=== PATIENT | male | born 1995 | race Caucasian/White ===

== ENCOUNTER 2017-06-07 20:42 | Emergency (ER) | payer SELFPAY ==
[2017-06-07 20:42] VITALS: BP 143/78; PULSE 57; RESP 16; TEMP 36.7; O2SAT 99; BMI 24.7
--- NOTE | 2017-06-07 21:50 | RAD_ITS ---
STUDY: X-RAY - RIGHT KNEE REASON FOR EXAM: Male, 21 years old. Twisted knee today. TECHNIQUE: 4 view(s) of the knee. COMPARISON: None. FINDINGS: Normal visualized distal femur. Normal visualized proximal tibia and fibula. Normal proximal tibiofibular articulation. Normal medial femorotibial compartment. Normal lateral femorotibial compartment. Normal patellofemoral articulation. The soft tissue structures are unremarkable. RAD/Knee 4 or More Views IMPRESSION: Normal x-ray examination of the knee. Electronically Signed: Steph Fitzpatrick MD at 22:14 EST Tel , Service support ,
--- NOTE | 2017-06-07 22:22 | ED.VISSUMM ---
- ER Visit Summary Date of Service: 06/07/17 Chief Complaint: Injured right knee playing basketball History of Present Illness: The patient is a 21 M aunts because of injury to right knee while playing basketball. He threw the ball backwards. He landed awkwardly and twisted his right knee. He complains of pain and swelling. He complains of pain with movement and weightbearing. He denies prior injury to the right knee. He denies any other injury. Please read written note for complete detail Physical Examination: He appears uncomfortable. Blood pressure elevated 147/74. The right knee is slightly swollen compared to left. The patella is not ballotable nor is there a palpable effusion. He is able to extend to 180? with discomfort and flex to 90? with discomfort. Varus valgus stress testing causes pain laterally. He has pain palpation along the joint line. He has pain palpation over the lateral femoral condyle as well. Chapin's test was negative. Modified Jeane's test was positive with click laterally. He had severe pain. There is no fullness or palpable mass in the popliteal fossa. DP and PT pulses are palpable. Test Results: 4 view x-ray of the knee was obtained per nursing protocol and is negative. Emergency Department Course and Treatment: Protocol was initiated for x-ray. Treatment Plan: Anti-inflammatory and referral to Dr. Eddi Alvarez who is on for orthopedics Disposition: Out patient orthopedic follow-up in 5-7 days Impression: Meniscal injury right knee This note was generated with [employer]. dictation software. It may contain incorrect words, spelling, and punctuation that were not noted in review of the chart prior to signing ED Disposition - Plan for ED Patient: Disposition: Home or Assisted Living Chief Complaint: Lower Extremity Injury Instructions: ED Meniscal Injury Knee Poss Prescriptions: Naproxen [Naprosyn] 500 mg PO BID #14 tab Referrals: Care Physician,No Primary [Primary Care Provider] - Eddi Alvarez DO [STAFF PHYSICIAN] - 5-7 Days
--- NOTE | 2017-06-07 22:26 | ED.DCSUM_ITS ---
- ER Visit Summary Date of Service: 06/07/17 Chief Complaint: Injured right knee playing basketball History of Present Illness: The patient is a 21 M aunts because of injury to right knee while playing basketball. He threw the ball backwards. He landed awkwardly and twisted his right knee. He complains of pain and swelling. He complains of pain with movement and weightbearing. He denies prior injury to the right knee. He denies any other injury. Please read written note for complete detail Physical Examination: He appears uncomfortable. Blood pressure elevated 147/ 74. The right knee is slightly swollen compared to left. The patella is not ballotable nor is there a palpable effusion. He is able to extend to 180? with discomfort and flex to 90? with discomfort. Varus valgus stress testing causes pain laterally. He has pain palpation along the joint line. He has pain palpation over the lateral femoral condyle as well. Chapin's test was negative. Modified Jeane's test was positive with click laterally. He had severe pain. There is no fullness or palpable mass in the popliteal fossa. DP and PT pulses are palpable. Test Results: 4 view x-ray of the knee was obtained per nursing protocol and is negative. Emergency Department Course and Treatment: Protocol was initiated for x-ray. Treatment Plan: Anti-inflammatory and referral to Dr. Eddi Alvarez who is on for orthopedics Disposition: Out patient orthopedic follow-up in 5-7 days Impression: Meniscal injury right knee This note was generated with [employer] dictation software. It may contain incorrect words, spelling, and punctuation that were not noted in review of the chart prior to signing ED Disposition - Plan for ED Patient: Disposition: Home or Assisted Living Chief Complaint: Lower Extremity Injury Instructions: ED Meniscal Injury Knee Poss Prescriptions: Naproxen [Naprosyn] 500 mg PO BID #14 tab Referrals: Care Physician,No Primary [Primary Care Provider] - Eddi Alvarez DO [STAFF PHYSICIAN] - 5-7 Days
[2017-06-07] MEDS: Naproxen 250 MG Tablet 500 MG PO (22:50)
[2017-06-07] MEDS: HYDROcodone Bitartrate/Apap 5/325 Tablet PO (22:51)
== END 2017-06-07 22:54 | disposition home or self-care (01) ==
LOC: ED 22:32
PROVIDERS: Emergency Provider Emergency Medicine
DX: S83.206A Unspecified tear of unspecified meniscus, current injury, right knee, initial encounter (principal); X50.1XXA Overexertion from prolonged static or awkward postures, initial encounter; Y93.67 Activity, basketball; Y92.9 Unspecified place or not applicable
CPT/HCPCS: 73564; 99283

== ENCOUNTER → 2017-06-15 06:28 | Outpatient (CLI) | payer SELFPAY ==
--- NOTE | 2017-06-15 06:33 | MRI_ITS ---
STUDY: MRI RIGHT KNEE REASON FOR EXAM: Medial knee pain for one week, basketball injury. TECHNIQUE: Standardized fat and water weighted pulse sequences were obtained in all 3 orthogonal planes. COMPARISON: Radiographs 06/07/2017. FINDINGS: Normal medial meniscus. Normal hyaline cartilage of the medial femorotibial compartment. Normal medial femoral condyle and tibial plateau. Normal medial collateral ligamentous complex (MCL). Normal distal semimembranosus, gracilis and semitendinosus tendons. Normal lateral meniscus. Normal hyaline cartilage of the lateral femorotibial compartment. Normal lateral femoral condyle and tibial plateau. Normal proximal tibiofibular articulation. Normal lateral collateral (fibular) ligament. Normal popliteus tendon. Normal biceps femoris tendon. There is mild interstitial edema in the anterior cruciate ligament (T2 sagittal image 13; T2 coronal images 14, 15) suggestive of a low-grade sprain. Normal posterior cruciate ligament (PCL). Normal congruent patellofemoral articulation. Normal hyaline cartilage of the patellofemoral compartment. Normal medial and lateral patellar retinaculum. There is mild distal quadriceps tendinosis (T2 sagittal images 14, 15). Normal patellar tendon. Normal Hoffa's fat pad. There is no joint effusion. There is a minimal popliteal cyst (T2 axial image 14). The otherwise visualized osseous structures are unremarkable. MRI/Lower Ext Joint Only (Routine) IMPRESSION: Mild anterior cruciate ligament sprain. Mild distal quadriceps tendinosis. No demonstrated meniscal tear. Electronically Signed: Lazaro Fonseca MD at 8:42 EST Tel , Service support ,
== END ==
PROVIDERS: Visit Provider Orthopaedic Surgery
DX: S83.511A Sprain of anterior cruciate ligament of right knee, initial encounter (principal); M76.891 Other specified enthesopathies of right lower limb, excluding foot
CPT/HCPCS: 73721

== ENCOUNTER → 2021-01-21 08:55 | Outpatient (CLI) | payer BC, SELFPAY ==
[2021-01-21 10:54] LABS: ALB/GLOB Ratio 1.3 RATIO (0.9-2.4); AST(SGOT) 14 U/L (15-37); Alanine Aminotransfer ALT/SGPT 29 U/L (16-61); Albumin, Serum 4.3 g/dL (3.2-5.0); Alkaline Phosphatase 70 U/L (45-117); Anion Gap 9 (5-15); BUN 10 mg/dL (7-18); BUN/Creat Ratio 10.2 RATIO (10-20); Chloride 104 mmol/L (98-107); Creatinine, Serum 0.98 mg/dL (0.70-1.30); EST Glomerular Filtration Rate 98 mL/min (>60); Est Glom Filt Rate - Afr Amer 119 mL/min (>60); Globulin 3.3 g/dL (2.2-4.2); Glucose 77 mg/dL (74-106); Magnesium 2.2 mg/dL (1.6-2.6); Potassium 4.1 mmol/L (3.5-5.1); Protein, Total 7.6 g/dL (6.4-8.2); Sodium Level 140 mmol/L (136-145); T4 Free Direct 1.08 ng/dL (0.76-1.46); Thyroid Stim Hormone (TSH) 1.39 uIU/mL (0.358-3.74)
[2021-01-23 16:09] LABS: Endomysial Antibody IgA Negative (Negative); Immunoglobulin A 222 mg/dL (90-386); Thyroid Stim Immunoglob <0.10 IU/L (0.00-0.55)
[2021-01-23 16:53] LABS: Anti-Thyroglobulin AB < 1.0 IU/mL (0.0-0.9); Thyroglobulin, Serum Qt. 21.5 ng/mL (1.4-29.2); Thyroid Peroxidase AB < 8 IU/mL (0-34); t-Transglutaminase IgA <2 U/mL (0-3)
[2021-01-25 09:08] LABS: Beef <0.10 kU/L (Class 0); Egg, Whole <0.10 kU/L (Class 0); Milk (Cow) <0.10 kU/L (Class 0); Peanut <0.10 kU/L (Class 0); Pork <0.10 kU/L (Class 0); Soybean <0.10 kU/L (Class 0); Wheat 0.13 kU/L (Class 0/I)
[2021-01-25 10:08] LABS: Chocolate <0.10 kU/L (Class 0)
[2021-01-27 14:19] LABS: Fats, Neutral Normal (.); Fats, Total Normal (.)
== END ==
PROVIDERS: PCP Family Medicine; Referring Provider Family Medicine; Visit Provider Family Medicine
DX: R14.0 Abdominal distension (gaseous) (principal); R19.7 Diarrhea, unspecified; E07.89 Other specified disorders of thyroid; Z91.018 Allergy to other foods
CPT/HCPCS: 36415; 80053; 82705; 82784; 83516; 83735; 84432; 84439; 84443; 84445; 86003; 86005; 86255; 86376; 86800; 87177; 87209; 87506

== ENCOUNTER → 2021-01-23 16:12 | Outpatient (CLI) | payer BC, SELFPAY ==
--- NOTE | 2021-01-23 16:18 | US_ITS ---
INDICATION: THYROID PAIN/FULLNESS EXAMINATION: Ultrasound US Thyroid (eg thyroid, parathyroid, parotid) TECHNIQUE: Oquendo scale and color doppler imaging was performed of the thyroid gland. COMPARISON: None. FINDINGS: RIGHT THYROID LOBE: The right lobe of the thyroid gland is unremarkable in size and demonstrates homogeneous echogenicity with unremarkable vascularity, The right lobe of the thyroid gland measures 4.6 x 1.5 1.9 cm. There is a single nodule visualized in the lower pole of the right lobe, this nodule demonstrates mixed solid/cystic consistency measuring 0.3 x 0.4 x 0.2 cm with subtle hyperechoic foci visualized in the periphery, regular margins with perinodular vascularity is demonstrated. #1- Location: Lower pole Size: 0.3 x 0.4 x 0.2 cm Composition: 1 Echogenicity: 0 Shape: 0 Margins: 0 Echogenic Foci: 2 Total points 3, TIRADS level TR3 LEFT THYROID LOBE: The left lobe of the thyroid gland is unremarkable in size demonstrating homogenous echogenicity and unremarkable vascularity. The left lobe of the thyroid gland measures 4.7 x 1.6 x 1.4 cm. A single nodule is visualized in the midpole of the left lobe. A solid nodule is visualized in the mid pole measuring 0.7 x 0.8 x 0.7 cm demonstrating well-demarcated regular smooth margins. #2- Location: Midpole Size: 0.7 x 0.8 x 0.7 mm. Composition: 1 Echogenicity: 1 Shape: Slightly ovoid in shape Margins: 0 Echogenic Foci: 0 Total points 3, TIRADS level TR3 ISTHMUS: The isthmus demonstrates homogenous echogenicity and measures 0.4 cm in AP diameter. No evidence of nodules within the isthmus. US/Thyroid IMPRESSION: Unremarkable size and echogenicity of the thyroid gland. A 0.4 cm TR 3 nodule is visualized in the midpole of the right lobe. TR3: Mildly suspicious (3 pts) FNA biopsy if nodule at least 2.5cm; follow if at least 1.5 cm at 1, 3 and 5 years. A 0.8 cm TR 3 nodule in the lower pole of the left lobe. TR3: Mildly suspicious (3 pts) FNA biopsy if nodule at least 2.5cm; follow if at least 1.5 cm at 1, 3 and 5 years. TI-RADS follow up recommendations: TR1: Benign (0pts) No FNA biopsy. TR2: Not suspicious (2 pts) No FNA biopsy. TR3: Mildly suspicious (3 pts) FNA biopsy if nodule at least 2.5cm; follow if at least 1.5cm. TR4: Moderately suspicious (4-6 pts) FNA biopsy if nodule at least 1.5cm; follow if at least 1 cm. TR5: Highly suspicious (at least 7 pts) FNA if nodule at least 1cm; follow if at least 0.5cm. Electronically Signed: Daniel Soriano MD at 9:13 EDT Tel , Service support ,
== END ==
PROVIDERS: PCP Family Medicine; Referring Provider Family Medicine; Visit Provider Family Medicine
DX: E04.1 Nontoxic single thyroid nodule (principal)
CPT/HCPCS: 76536

== ENCOUNTER 2021-02-26 12:31 | Day surgery (SDC) | payer BC, SELFPAY ==
[2021-02-26] VITALS (7 sets, daily range): BP systolic 97–125; BP diastolic 42–75; PULSE 54–65; RESP 16–106; TEMP 36.1–36.3; O2SAT 99–100; BMI 21.5
[2021-02-26] MEDS: Lactated Ringers 1,000 ML 15 ML IV (12:57)
--- NOTE | 2021-02-26 13:57 | PCM.HP.BLA ---
History and Physical Date of Admission: 02/26/21 Chief Complaint: Diarrhea Details: RIMA SEO, is a 25 M who presents to the office today for the evaluation of constipation alternating with diarrhea, abdominal pain located mid abdomen worsening with constipation, bloating and heartburn. His stools have mucous without blood. No change to routine of food or run habits. Onset 3 weeks ago, after a run and he is unable to run as his hobby. He had to cancel a marathon run, leave work function. Biochemical workup performed and normal, stool studies normal. PCP told him that he is slightly allergic to wheat and to avoid this in his diet. He has been able to reduce wheat intake significantly for the last 10 days with no change in symptoms. Denies history of EGD and colonoscopy. ROS Const Constitutional: No anorexia, fatigue, fever(s), weight change or sleep problems Eyes Eyes: No change in vision ENT ENT: No abnormal hearing, difficulty swallowing, mouth lesions, tongue swelling or throat swelling Resp Respiratory: No cough or shortness of breath Cardio Cardiology: No chest pain at rest, chest pain with exertion, shortness of breath or dyspnea on exertion Gastro GI: Positive for abdominal pain, bloating, change in bowel habits, constipation, diarrhea and heartburn; No difficulty swallowing Genitourinary Male: No difficulty urinating or burning urination Musc Musculoskeletal: No joint pain, joint swelling, muscle weakness or decreased muscle mass Skin Skin: No hair loss in leg, yellowing of the eye, itchy eyes, rash, skin ulcer or skin swelling Neuro Neurology: No abnormal hearing, abnormal movements, confusion, unsteady gait/balance or memory loss Psych Psychiatric: No anxiety, No confusion and No memory loss Endo Endocrine: No fatigue or weight change Aller/Imm Allergy/Immunologic: No itchy eyes, throat swelling or tongue swelling Chon/Lymp Hematologic/Lymphatic: No easy bleeding, easy bruising or enlarged lymph nodes Exam Const General: cooperative and comfortable Nutritional Appearance: average body habitus and well nourished [facility] Head: normal to inspection Ears: hearing grossly normal bilaterally Nose: external nose normal Face and sinus: normal facial exam Mouth: oral mucosae normal Throat: posterior oropharynx normal Eyes General: appearance normal, both eyes and all related structures Neck Neck: normal visual inspection Chest Chest palpation & inspection: normal inspection of the chest and normal palpation of entire chest wall Resp Effort & Inspection: normal respiratory effort Auscultation: Bilateral: Clear to Auscultation Cardio Palpation: normal PMI Rate: regular rate Rhythm: regular rhythm GI Inspection: normal to inspection Auscultation: normal bowel sounds Percussion: normal to percussion Palpation: no hepatosplenomegaly Skin General: no rashes or lesions noted Neuro General: patient alert Extrem General: normal to inspection Psych Affect: normal affect Quality Reporting Tobacco Screening ([facility] 138) Smoking Status: Never smoker Assessment and Plan Assessment and Plan (1) Diarrhea: Plan - Dr. Edward Friend, DO: He went to go undergo EGD and colonoscopy evaluate his upper and lower GI tract. The diagnosis would include Crohn's disease, less likely celiac disease, microscopic colitis and less likely ulcerative colitis. Also we will do cultures of his duodenum and stool to see if there is any underlying infection and was missed during his first test of his stool.
--- NOTE | 2021-02-26 14:00 | EGD_PTH ---
PATIENT: RIMA SEO LOC: EN U#:[id number] AGE/SX: 25/M ROOM: RE02/26/[address]: Dr. Wagner Grey DO : 1995 BED: DIS: 02/26/2021 SPEC #: [id number] RECD: 02/26/21 15:37 STATUS: MILVIA TERRENCE #: [id number] LEEANNE: 02/26/21 14:[address]: Wagner Grey DEPT: SURGICAL PATHOLOGY RECD BY: Jacquelin Luna ENTERED: 02/27/21 12:30 SP TYPE: EGD BIOPSY OT DR: Dr. Romeo De Jesus MD Tissues: A - Duodenum, NOS B - Gastric mucous membrane C - Esophagus, NOS D - Ileum, NOS E - COLON BIOPSY Procedures: Special Stain Group II Surgery Specimen Level IV Alcian Blue/PAS (control) HEADER OPERATION: Colonoscopy, E[place] ([facility] [place] PRE-OP DIAGNOSIS: Diarrhea TISSUE SUBMITTED: A ? Biopsy duodenum, B ? Biopsy gastric antrum for H. pylori and path, C ? Biopsy distal esophagus, D ? Biopsy terminal ileum, E ? Biopsy random colon MICROSCOPIC DIAGNOSIS A. Duodenum, biopsy: A fragment of duodenal mucosa, no pathologic diagnosis. B. Gastric antrum, biopsy: Minimal gastritis. See microscopic description and comment. C. 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 Chronic inflammation. Negative for dysplasia. See comment. D. Terminal ileum, biopsy: Fragments of small intestinal mucosa, no pathologic diagnosis. E. Colon, random biopsy: Fragments of colonic mucosa, no pathologic diagnosis. SJ:rg 02/28/2021 COMMENT B. The results of immunohistochemistry for Helicobacter pylori will be reported separately ([id number]). C. A few lymphoid aggregates are also noted, favor benign. Alcian blue/PAS stain with matched control is used in the evaluation of the specimen. Immunohistochemistry ([id number]) for P53 and Ki-67 will be performed and results will be reported separately. MICROSCOPIC DESCRIPTION Slides are reviewed. B. The specimen shows fragments of gastric mucosa with chronic inflammatory cell infiltrates in the lamina propria consisting of lymphocytes and plasma cells, consistent with minimal chronic gastritis. GROSS DESCRIPTION A - Received in fixative is one container labeled with the patient's name and designated biopsy duodenum. The specimen consists of one irregular fragment of light batres soft tissue that measures 0.5 x 0.2 x 0.1 cm. The specimen is totally submitted in one cassette. B - Received in fixative is one container labeled with the patient's name and designated biopsy gastric antrum. The specimen consists of multiple irregular fragments of light batres soft tissue that in aggregate measure 1.5 x 0.3 x 0.1 cm. The specimen is totally submitted in one cassette. C - Received in fixative is one container labeled with the patient's name and designated biopsy distal esophagus. The specimen consists of two irregular fragments of light batres soft tissue that in aggregate measure 0.6 x 0.3 x 0.1 cm. The specimen is totally submitted in one cassette. D - Received in fixative is one container labeled with the patient's name and designated biopsy terminal ileum. The specimen consists of multiple irregular fragments of light batres soft tissue that in aggregate measure 1.5 x 0.5 x 0.1 cm. The specimen is totally submitted in one cassette. E - Received in fixative is one container labeled with the patient's name and designated biopsy random colon. The specimen consists of multiple irregular fragments of light batres soft tissue that in aggregate measure 2.5 x 0.5 x 0.1 cm. The specimen is totally submitted in one cassette. / SJ:rg 02/27/21 TC:3 [facility]: [id number] x5, [id number]
--- NOTE | 2021-02-26 14:00 | IMM_PTH ---
PATIENT: RIMA SEO LOC: EN U#:[id number] AGE/SX: 25/M ROOM: RE02/26/[address]: Dr. Wagner Grey DO : 1995 BED: DIS: 02/26/2021 SPEC #: [id number] RECD: 02/27/21 14:06 STATUS: MILVIA RESamy #: [id number] LEEANNE: 02/26/21 14:[address]: Wagner Grey DEPT: IMMUNOHISTOCHEMISTRY RECD BY: Lazara Mejía ENTERED: 02/27/21 14:06 SP TYPE: IMMUNO OTHR DR: Dr. Romeo De Jesus MD Tissues: B - Stomach, NOS C - Esophagus, NOS Procedures: H Pylori (initial) P53 (initial) KI-67 (add) PHYSICIAN & INSTITUTION [place] [id number] SPECIMEN INFORMATION: Tissue Source: B ? Gastric antrum, C ? Distal esophagus Clinical Info: Diarrhea Specimen Number: [id number] B & C CPT code: 23864 x2, 62353 METHODOLOGY: Deparaffinized sections of prefer/formalin-fixed tissue or PAP/DQ stained slides are incubated with monoclonal/polyclonal antibodies/oligonucleotide probes. Localization is made via biotin free immunoperoxidase method. Appropriate controls are performed and reacted as expected. Results on target cell population are indicated in the following table: RESULTS: ANTIBODY / CLONE RESULT Block B H Pylori (polyclonal) negative Block C P53 (DO-7) negative Ki-67 (30-9) positive, very low These tests were developed and their performance characteristics determined by [facility]. They may not have been cleared or approved by the U.S. Food and Drug Administration. The FDA has determined that such clearance or approval is not necessary. The above immunohistochemical/dualISH markers are ordered and reviewed by the pathologist. INTERPRETATION: B. Gastric antrum, biopsy: Negative for Helicobacter pylori organisms. C. Distal esophagus, biopsy: Negative for dysplasia. SJ:phani 02/28/2021
--- NOTE | 2021-02-26 14:51 | OP.CCLET_ITS ---
12/19/2021 Romeo De Jesus [address] [place] [address] Re : Upper GI endoscopy procedure for Booker Davis Dear Dr. De Jesus This procedure was performed on Friday, February 26, 2021. My impressions and recommendations are as follows: Impressions : - LA Grade A reflux esophagitis. Biopsied. - Gastritis. Biopsied. - Erythematous duodenopathy. Recommendations : - Discharge patient to home. - Resume previous diet. - Continue present medications. - Await pathology results. - Return to my office in 2 weeks. My findings are described in the full procedure note, which is enclosed. If I can be of further assistance, please feel free to contact me at . Sincerely, Wagner Grey, 02/26/2021 2:50:41 PM This report has been signed electronically.
--- NOTE | 2021-02-26 14:51 | OP.EGD_ITS ---
Patient Name: Booker Davis Procedure Date: 02/26/2021 12:12 PM Date of : 1995 Age: 25 Procedure: Upper GI endoscopy Indications: Epigastric abdominal pain Providers: Wagner Grey DO Medicines: See the Anesthesia note for documentation of the administered medications Patient Profile: This is a 25 year old male. Refer to note in patient chart for documentation of history and physical. Patient has symptoms of acute global abdominal pain and acute nausea. Complications: No immediate complications. Procedure: Pre-Anesthesia Assessment: - Prior to the procedure, a History and Physical was performed, and patient medications and allergies were reviewed. The patient is competent. The risks and benefits of the procedure and the sedation options and risks were discussed with the patient. All questions were answered and informed consent was obtained. Patient identification and proposed procedure were verified by the physician in the pre-procedure area. Mental Status Examination: alert and oriented. Airway Examination: normal oropharyngeal airway and neck mobility. Respiratory Examination: clear to auscultation. CV Examination: normal. Prophylactic Antibiotics: The patient does not require prophylactic antibiotics. Prior Anticoagulants: The patient has taken no previous anticoagulant or antiplatelet agents. After reviewing the risks and benefits, the patient was deemed in satisfactory condition to undergo the procedure. The anesthesia plan was to use moderate sedation / analgesia (conscious sedation). Immediately prior to administration of medications, the patient was re-assessed for adequacy to receive sedatives. The heart rate, respiratory rate, oxygen saturations, blood pressure, adequacy of pulmonary ventilation, and response to care were monitored throughout the procedure. The physical status of the patient was re-assessed after the procedure. After obtaining informed consent, the endoscope was passed under direct vision. Throughout the procedure, the patient's blood pressure, pulse, and oxygen saturations were monitored continuously. The Endoscope was introduced through the mouth, and advanced to the second part of duodenum. The upper GI endoscopy was accomplished without difficulty. The patient tolerated the procedure well. Moderate Sedation: Moderate (conscious) sedation was administered by the endoscopy nurse and supervised by the endoscopist. The patient's oxygen saturation, heart rate, blood pressure and response to care were monitored. Total physician intraservice time was 15 minutes. Scope In: 2:12:15 PM Scope Out: 2:17:59 PM Total Procedure Duration Time 0 hours 5 minutes 44 seconds Findings: LA Grade A (one or more mucosal breaks less than 5 mm, not extending between tops of 2 mucosal folds) esophagitis with no bleeding was found 34 to 35 cm from the incisors. Biopsies were taken with a cold forceps for histology. Verification of patient identification for the specimen was done. Estimated blood loss was minimal. Localized mild inflammation characterized by erythema was found in the stomach. Biopsies were taken with a cold forceps for histology. Verification of patient identification for the specimen was done. Estimated blood loss was minimal. Patchy mildly erythematous mucosa without active bleeding and with no stigmata of bleeding was found in the first portion of the duodenum. Impression: - LA Grade A reflux esophagitis. Biopsied. - Gastritis. Biopsied. - Erythematous duodenopathy. Recommendation: - Discharge patient to home. - Resume previous diet. - Continue present medications. - Await pathology results. - Return to my office in 2 weeks. Procedure Code(s): --- Professional --- 80170, Esophagogastroduodenoscopy, flexible, transoral; with biopsy, single or multiple G0500, Moderate sedation services provided by the same physician or other qualified health skin care instructor performing a gastrointestinal endoscopic service that sedation supports, requiring the presence of an independent trained observer to assist in the monitoring of the patient's level of consciousness and physiological status; initial 15 minutes of intra-service time; patient age 5 years or older (additional time may be reported with 31290, as appropriate) CPT copyright 2017 [employer]. All rights reserved. The codes documented in this report are preliminary and upon orthopedic coder review may be revised to meet current compliance requirements. Wagner Grey DO 02/26/2021 2:50:41 PM This report has been signed electronically. Number of Addenda: 1 Note Initiated On: 02/26/2021 12:12 PM Addendum Number: 1 Addendum Date: 12/19/2021 6:20:53 AM MAC was used instead of moderate sedation for this patient. Wagner Grey DO 12/19/2021 6:21:00 AM This report has been signed electronically.
--- NOTE | 2021-02-26 14:56 | OP.COLON_ITS ---
Patient Name: Booker Davis Procedure Date: 02/26/2021 2:19 PM Date of : 1995 Age: 25 Procedure: Colonoscopy Indications: Clinically significant diarrhea of unexplained origin Providers: Wagner Grey DO Medicines: See the Anesthesia note for documentation of the administered medications Patient Profile: This is a 25 year old male. Refer to note in patient chart for documentation of history and physical. Patient has symptoms of acute global abdominal pain and acute nausea. Last Colonoscopy: none. The patient's first colonoscopy is today. Complications: No immediate complications. Procedure: Pre-Anesthesia Assessment: - Prior to the procedure, a History and Physical was performed, and patient medications and allergies were reviewed. The patient is competent. The risks and benefits of the procedure and the sedation options and risks were discussed with the patient. All questions were answered and informed consent was obtained. Patient identification and proposed procedure were verified by the physician in the pre-procedure area. Mental Status Examination: alert and oriented. Airway Examination: normal oropharyngeal airway and neck mobility. Respiratory Examination: clear to auscultation. CV Examination: normal. Prophylactic Antibiotics: The patient does not require prophylactic antibiotics. Prior Anticoagulants: The patient has taken no previous anticoagulant or antiplatelet agents. After reviewing the risks and benefits, the patient was deemed in satisfactory condition to undergo the procedure. The anesthesia plan was to use moderate sedation / analgesia (conscious sedation). Immediately prior to administration of medications, the patient was re-assessed for adequacy to receive sedatives. The heart rate, respiratory rate, oxygen saturations, blood pressure, adequacy of pulmonary ventilation, and response to care were monitored throughout the procedure. The physical status of the patient was re-assessed after the procedure. After I obtained informed consent, the scope was passed under direct vision. Throughout the procedure, the patient's blood pressure, pulse, and oxygen saturations were monitored continuously. The pediatric colonoscope was introduced through the anus and advanced to the terminal ileum. The colonoscopy was performed without difficulty. The patient tolerated the procedure well. The quality of the bowel preparation was good. Moderate Sedation: Moderate (conscious) sedation was administered by the endoscopy nurse and supervised by the endoscopist. The patient's oxygen saturation, heart rate, blood pressure and response to care were monitored. Total physician intraservice time was 15 minutes. Scope In: 2:24:38 PM Scope Withdrawal Time 0 hours 7 minutes 41 seconds Scope Out: 2:42:57 PM Total Procedure Duration Time 0 hours 18 minutes 19 seconds Findings: The perianal and digital rectal examinations were normal. There was moderate spasm in the sigmoid colon. The rectum appeared normal. Biopsies for histology were taken with a cold forceps from the ascending colon, right colon, left colon, transverse colon, right transverse colon, left transverse colon, descending colon, sigmoid colon, rectum and rectosigmoid colon for evaluation of microscopic colitis. Biopsies were taken with a cold forceps for histology. The terminal ileum appeared normal. Biopsies were taken with a cold forceps for histology. Estimated blood loss was minimal. Impression: - Moderate colonic spasm consistent with irritable bowel syndrome. - The rectum is normal. Biopsied. - The examined portion of the ileum was normal. Biopsied. Recommendation: - Discharge patient to home. - Resume previous diet. - Continue present medications. - Await pathology results. - Return to my office in 2 weeks. - Repeat colonoscopy in 5 years for surveillance based on pathology results. Procedure Code(s): --- Professional --- 64765, Colonoscopy, flexible; with biopsy, single or multiple G0500, Moderate sedation services provided by the same physician or other qualified health complex care nurse performing a gastrointestinal endoscopic service that sedation supports, requiring the presence of an independent trained observer to assist in the monitoring of the patient's level of consciousness and physiological status; initial 15 minutes of intra-service time; patient age 5 years or older (additional time may be reported with 17930, as appropriate) CPT copyright 2017 [employer]. All rights reserved. The codes documented in this report are preliminary and upon hydraulic rubbish compactor mechanic review may be revised to meet current compliance requirements. Wagner rGey DO 02/26/2021 2:56:12 PM This report has been signed electronically. Number of Addenda: 1 Note Initiated On: 02/26/2021 2:19 PM Addendum Number: 1 Addendum Date: 12/19/2021 6:21:11 AM MAC was used instead of moderate sedation for this patient. Wagner Grey DO 12/19/2021 6:21:16 AM This report has been signed electronically.
--- NOTE | 2021-02-26 14:57 | OP.CCLET_ITS ---
12/19/2021 Romeo De Jesus [address] [place] [address] Re : Colonoscopy procedure for Booker Davis Dear Dr. De Jesus This procedure was performed on Friday, February 26, 2021. My impressions and recommendations are as follows: Impressions : - Moderate colonic spasm consistent with irritable bowel syndrome. - The rectum is normal. Biopsied. - The examined portion of the ileum was normal. Biopsied. Recommendations : - Discharge patient to home. - Resume previous diet. - Continue present medications. - Await pathology results. - Return to my office in 2 weeks. - Repeat colonoscopy in 5 years for surveillance based on pathology results. My findings are described in the full procedure note, which is enclosed. If I can be of further assistance, please feel free to contact me at . Sincerely, Wagner Grey, 02/26/2021 2:56:12 PM This report has been signed electronically.
== END 2021-02-26 15:40 | disposition home or self-care (01) ==
LOC: EN 12:34 → AC 12:35
PROVIDERS: PCP Family Medicine; Referring Provider Family Medicine; Visit Provider Internal Medicine Gastroenterology
PROC: 0DJD8ZZ Inspection of Lower Intestinal Tract, Via Natural or Artificial Opening Endoscopic (ICD-10-PCS; CPT 45378; principal; 2021-02-26 13:55)
DX: K22.70 Barrett's esophagus without dysplasia (principal); K21.00 Gastro-esophageal reflux disease with esophagitis, without bleeding; K29.70 Gastritis, unspecified, without bleeding; K31.89 Other diseases of stomach and duodenum; K58.2 Mixed irritable bowel syndrome
CPT/HCPCS: 43239; 45380; 88305; 88313; 88341; 88342; J7120; J2405

== ENCOUNTER → 2021-03-11 09:54 | Outpatient (CLI) | payer BC, SELFPAY ==
[2021-03-13 11:50] LABS: Gastrin, Serum 12 pg/mL (0-115)
== END ==
PROVIDERS: PCP Family Medicine; Referring Provider Internal Medicine Gastroenterology; Visit Provider Internal Medicine Gastroenterology
DX: K52.9 Noninfective gastroenteritis and colitis, unspecified (principal)
CPT/HCPCS: 36415; 82941

== ENCOUNTER → 2021-04-08 17:39 | Outpatient (CLI) | payer BC, SELFPAY ==
--- NOTE | 2021-04-08 17:42 | CT_ITS ---
STUDY: CT ABDOMEN AND PELVIS WITH CONTRAST REASON FOR EXAM: Male, 25 years old. Winkler''s esophagus on upper endoscopy. Abdominal pain. RADIATION DOSAGE (If Supplied By Facility): CTDIvol = ( 10.15 ) mGy, DLP = ( 499.09 ) mGycm TECHNIQUE: Transaxial images were obtained from the dome of the diaphragm to the symphysis pubis with oral contrast. Oral and amp; IV Readi-CAT and amp; 100mL Isovue-300 was administered. Sagittal and coronal images were reconstructed. Individualized dose optimization techniques were used for this CT. COMPARISON: Comparison is made with prior examination of 06/04/2013. FINDINGS: The visualized lung bases are unremarkable. The visualized portions of the heart are within normal limits. Normal liver. Normal gallbladder and extrahepatic biliary system. Normal spleen. Normal pancreas. Normal bilateral adrenal glands. Normal right kidney. Normal left kidney. Normal visualized stomach. Normal small intestine. There are scattered colonic diverticula consistent with diverticulosis. The appendix is visualized and appears normal. Normal abdominal aorta. Normal inferior vena cava. Normal retroperitoneum. Normal urinary bladder. Normal abdominal wall. Straightening of the normal lumbar lordosis. CT/Abdomen/Pelvis WITH Contrast IMPRESSION: Normal enhanced CT of the abdomen and pelvis. Electronically Signed: Homer Bartlett MD at 8:29 EST , Service support ,
== END ==
PROVIDERS: PCP Family Medicine; Visit Provider Internal Medicine Gastroenterology
DX: R10.9 Unspecified abdominal pain (principal)
CPT/HCPCS: 74177; Q9967

== ENCOUNTER → 2021-04-10 14:05 | Outpatient (CLI) | payer BC, SELFPAY ==
[2021-04-10 15:36] LABS: Vitamin B12 312 pg/mL (211-911)
[2021-04-10 16:11] LABS: CPK Total, Creatine Kinase 102 U/L (39-308); Free T3 2.8 pg/mL (2.18-3.98); T4 Free Direct 1.12 ng/dL (0.76-1.46); Thyroid Stim Hormone (TSH) 2.37 uIU/mL (0.358-3.74)
[2021-04-14 11:07] LABS: Anti-Centromere B Ab <0.2 AI (0.0-0.9); Anti-Chromatin <0.2 AI (0.0-0.9); Anti-Jo <0.2 AI (0.0-0.9); Anti-Scleroderma-70 AB <0.2 AI (0.0-0.9); RNP Ab 0.2 AI (0.0-0.9); SJOGREN'S Anti-SS-A test < 0.2 AI (0.0-0.9); SJOGREN'S Anti-SS-B test < 0.2 AI (0.0-0.9); Smith Ab <0.2 AI (0.0-0.9)
[2021-04-14 14:54] LABS: Anti-dsDNA Ab <1 IU/mL (0-9)
== END ==
PROVIDERS: Nurse Practitioner Adult Health; PCP Family Medicine; Visit Provider Internal Medicine Gastroenterology
DX: K22.70 Barrett's esophagus without dysplasia (principal); R10.9 Unspecified abdominal pain; R63.4 Abnormal weight loss
CPT/HCPCS: 82550; 82607; 82746; 83516; 84439; 84443; 84481; 86225; 86226; 86235

== ENCOUNTER 2021-06-10 08:05 | Outpatient (CLI) | payer BC, SELFPAY ==
--- NOTE | 2021-06-10 08:08 | RAD_ITS ---
PROCEDURE: SMALL BOWEL SERIES DATE OF EXAMINATION: 06/10/2021. INDICATION: Male, 25 years old. Abdominal pain. Constipation/diarrhea. PHYSICIAN: Homer Bartlett M.D. FLUOROSCOPY TIME (if supplied): (0:07) minutes/seconds. 8 images were obtained. TECHNIQUE: Radiographic and fluoroscopic images were taken of the small intestine following the ingestion of barium. COMPARISON: None. FINDINGS: A preliminary supine KUB was obtained. There is an unremarkable bowel gas pattern. Large amount of fecal material is seen in the colon. The lung bases are unremarkable. The osseous structures are normal. The patient orally ingested approximately 12 ounces of thin barium Normal visualized fundus, body, and antrum of the stomach. Normal duodenal bulb, C-loop, and proximal jejunum. Normal visualized mucosal folds of the jejunum and ileum. There are no demonstrated dilatations, strictures, or masses of the small intestine. There is no mass displacement of the loops of small intestine. There is a normal motor pattern with barium reaching the colon within approximately 60 minutes. Spot films under fluoroscopic observation demonstrated a normal terminal ileum and ileocecal valve. RAD/Small Bowel Series Only IMPRESSION: Normal small bowel series. Electronically Signed: Homer Bartlett MD at 12:01 EST ,
== END 2021-06-10 23:59 | disposition home or self-care (01) ==
LOC: RAD 08:05
PROVIDERS: PCP Family Medicine; Referring Provider Internal Medicine Gastroenterology; Visit Provider Internal Medicine Gastroenterology
DX: R19.7 Diarrhea, unspecified (principal); R10.9 Unspecified abdominal pain
CPT/HCPCS: 74250

== ENCOUNTER 2021-10-18 19:24 | Emergency (ER) | payer BC, SELFPAY ==
[2021-10-18 19:24] VITALS: BP 139/69; PULSE 63; RESP 15; TEMP 36.8; O2SAT 100; BMI 22.6
--- NOTE | 2021-10-18 20:27 | CT_ITS ---
STUDY: CTA HEAD AND NECK WITH CONTRAST REASON FOR EXAM: Male, 26 years old. vertigo RADIATION DOSAGE (If Supplied By Facility): CTDIvol = ( 31.76 ) mGy, DLP = ( 1606.65 ) mGycm TECHNIQUE: CT angiography was performed with a multi-detector CT scanner. Data acquisition was obtained from the skull base through the vertex following intravenous administration of IV 100mL Isovue-370. MIP images were reconstructed from the axial data set. Post-processing of the angiographic images was performed, with multiplanar reformation and 3D reconstruction. Individualized dose optimization techniques were used for this CT. COMPARISON: No relevant priors. FINDINGS: Normal bilateral petrous and cavernous carotid arteries. Normal anterior cerebral arteries. Normal intact anterior communicating artery (ACOM). Normal middle cerebral arteries Normal right posterior communicating artery (PCOM). Normal left posterior communicating artery (PCOM). Normal bilateral vertebral arteries. Normal basilar artery with a normal basilar bifurcation. The visualized bilateral superior cerebellar (SCA) arteries are normal. origin of the right posterior cerebral artery with robust posterior communicating artery and absent P1 segment of the right [employer]. Normal left P1 segment. Normal bilateral P2 and visualized P3 segments of the posterior cerebral arteries. There is no demonstrated aneurysm of the [place]. There is no demonstrated abnormality of the visualized brain. AORTIC ARCH: Normal visualized aortic arch. Normal origins of the brachiocephalic, left common carotid, and left subclavian arteries. RIGHT CAROTID ARTERIES: Normal right common carotid artery (CCA). Normal right common carotid bulb. Normal origin of the right internal carotid (ICA) artery without stenosis. Normal visualized cervical portion of the right internal carotid artery. Normal origin of the right external carotid artery (ECA). LEFT CAROTID ARTERIES: Normal left common carotid artery (CCA). Normal left common carotid bulb. Normal origin of the left internal carotid (ICA) artery without stenosis. Normal visualized cervical portion of the left internal carotid artery. Normal origin of the left external carotid artery (ECA). VERTEBRAL ARTERIES: Normal bilateral vertebral arteries. 0.8 cm left thyroid nodule. CT/CTA Head AND Neck W/ Contrast IMPRESSION: Normal CTA Head and neck with contrast. Subcentimeter thyroid nodule. No follow-up is necessary per ACR guidelines. Electronically Signed: Alyssa Lanza MD at 22:38 EDT Reading Location ID and State: [id number] / Tel , Service support ,
[2021-10-18] MEDS: Meclizine HCl 25 MG Tablet PO (20:41)
[2021-10-18] MEDS: 0.9% Normal Saline 1,000 ML 1000 ML IV (20:41)
[2021-10-18] MEDS: Ondansetron 4 MG/2 ML Vial IV (20:41)
[2021-10-18 20:48] LABS: Absolute Lymphocyte Count 1.79 X10^3/uL (0.83-4.51); Absolute Neutrophil Count 2.8 X10^3/uL (2.0-7.7); Basophil# 0.04 X10^3/uL; Basophil% 0.8 % (0-1); Eosinophil# 0.14 X10^3/uL; Eosinophils% 2.7 % (0-5); Hematocrit 41.6 % (40-54); Hemoglobin 14.4 g/dL (13.0-16.5); Lymphocyte # 1.79 X10^3/ul (0.83-4.51); Lymphocyte % 34.2 % (19-41); Mean Corp Hgb Conc 34.6 g/dL (32-36); Mean Corpuscular Hgb 29.4 pg (27.0-32.0); Mean Corpuscular Volume 84.9 fL (80-94); Mean Platelet Vol. 11.4 fl (6.2-12.0); Monocyte# 0.46 X10^3/uL; Monocyte% 8.8 % (0-10); NRBC Flagged by Analyzer 0 % (0-5); Neutrophil % 53.3 % (47-70); Platelet Count 214 K/mm3 (150-450); RBC Distribution Width CV 11.9 % (11.6-14.6); RBC Distribution Width SD 36.4 fl (35.1-43.9); White Blood Count 5.2 K/mm3 (4.4-11.0)
[2021-10-18 21:04] LABS: Anion Gap 4 (5-15); BUN 9 mg/dL (7-18); BUN/Creat Ratio 9.6 RATIO (10-20); Chloride 107 mmol/L (98-107); Creatinine, Serum 0.94 mg/dL (0.70-1.30); EST Glomerular Filtration Rate 103 mL/min (>60); Est Glom Filt Rate - Afr Amer 124 mL/min (>60); Estimated Creatinine Clearance 122.69 ml/min; Glucose 118 mg/dL (74-106); Potassium 3.8 mmol/L (3.5-5.1); Sodium Level 141 mmol/L (136-145)
--- NOTE | 2021-10-18 22:28 | EX.ED.DYSGE1 ---
HPI History of Present Illness Chief Complaint: Dizziness Informant: patient Onset/Context/Timing Onset: Today Current Severity: Mild Maximum Severity: Moderate Narrative Narrative: Patient presents secondary to vertigo. He states he felt well this morning. He went to the gym to workout. He states after doing some squats he was walking across to the bench when he started to feel little lightheaded as if he might pass out. He laid down to do a few bench presses. He states he was using a light weight for a warm up. He became dizzy and felt as if he was going to pass out so he stopped. Throughout the day today he has felt off balance as if things are spinning when he moves his head. No significant headache. [facility] Medical History Winkler esophagus IBS (irritable bowel syndrome) Non-smoker prior herniated disc,back surgery. Medical History no medical history Home Medications amitriptyline 10 mg tablet 10 tab PO QHS 10/18/21 [History Last Taken Unknown] meclizine 50 mg tablet (Antivert) 50 mg PO BID PRN dizziness #20 tabs 10/18/21 [Rx Last Taken Unknown] ondansetron 4 mg disintegrating tablet 4 mg PO Q8H PRN nausea and vomiting #10 tabs 10/18/21 [Rx Last Taken Unknown] Allergy/AdvReac Type Severity Reaction Status Date / Time strawberry [Willet] Allergy Hives Verified 10/18/21 19:27 Family History Other History of kidney cancer Surgical History h/o back surgery Hx of surgical procedure Social History Smoking Status: Never smoker ROS ROS ED Constitutional Constitutional ED: Denies chills or fever(s) Eyes Eyes: Denies change in vision or discharge from eye(s) ENT ENT ED: Denies discharge from eye(s), rhinorrhea or sore throat Cardiovascular Cardiovascular: Denies chest pain or palpitations Respiratory/Chest Respiratory/Chest: Denies cough or dyspnea Gastrointestinal Gastrointestinal: Reports nausea and vomiting; Denies abdominal pain or diarrhea Genitourinary Genitourinary ED: Denies difficulty urinating or dysuria Musculoskeletal Musculoskeletal: Denies back pain or extremity pain Integumentary Denies Abrasions or rash Neurologic Neurologic: Denies headache(s) or weakness Allergic/Immunologic Allergic/Immunologic ED: Denies lip swelling or urticaria EXAM Physical Exam Const Vital Signs: 10/18/21 19:24 10/18/21 19:32 Temperature 98.2 F Temperature Source Temporal Pulse Rate 63 Respiratory Rate 15 Respiratory Effort Normal Non-Labored Respiratory Pattern Normal Blood Pressure 139/69 H Blood Pressure Mean 92 Pulse Ox 100 Oxygen Delivery Method Room Air Positive well nourished and well developed General Appearance ED: well developed HEENT Reports normocephalic and head/scalp atraumatic Eyes PERRL and EOMs intact bilaterally Neck supple Chest Wall inspection of chest normal and palpation of chest normal Resp normal respiratory effort and clear to auscultation bilaterally Cardio regular rate and regular rhythm GI normal to inspection, nondistended, normoactive bowel sounds Palpation: soft Extremity normal to inspection Neuro oriented x3 and no sensory deficits noted Sensorium / Orientation: alert Motor Exam: strength 5/5 throughout Psych mental status grossly normal Skin no rashes or lesions noted MDM MDM MDM Narrative Medical decision making narrative: Patient is given Zofran and Antivert along with IV fluids. Lab work obtained along with a CTA of the head and neck. Lab Data Attestation: I reviewed the patient's lab results. Labs: Laboratory Results - last 24 hr 10/18/21 10/18/21 20:40 20:40 WBC 5.2 RBC 4.90 Hgb 14.4 Hct 41.6 MCV 84.9 MCH 29.4 MCHC 34.6 RDW Std Deviation 36.4 RDW Coeff of Alesha 11.9 Plt Count 214 MPV 11.4 Immature Gran % (Auto) 0.200 Neut % (Auto) 53.3 Lymph % (Auto) 34.2 [place] % (Auto) 8.8 Eos % (Auto) 2.7 Baso % (Auto) 0.8 Absolute Neuts (auto) 2.8 Absolute Lymphs (auto) 1.79 Nucleated RBC % 0 Sodium 141 Potassium 3.8 Chloride 107 Carbon Dioxide 30.0 Anion Gap 4 L BUN 9 Creatinine 0.94 Estim Creat Clear Calc 122.69 Est GFR (MDRD) Af Amer 124 Est GFR (MDRD) Non-Af 103 BUN/Creatinine Ratio 9.6 L Glucose 118 H Calcium 9.0 Radiography Diagnostic Testing: Clinical Impression(s) from Imaging Studies Head/Neck CTA 10/18/21 20:27 IMPRESSION: Normal CTA Head and neck with contrast. Subcentimeter thyroid nodule. No follow-up is necessary per ACR guidelines. Electronically Signed: Alyssa Lanza MD at 22:38 EDT Reading Location ID and State: [id number] / Tel , Service support , Treatment and Re-Evaluation Narrative: Lab work is unremarkable. CTA of the head and neck is normal. On repeat evaluation patient does report some improvement when he sitting upright. He states shortly before I entered the room he turned his head to the side but still felt very vertiginous with this. He will be given prescription for Zofran and Antivert. He will also be given instructions on Genevieve maneuvers. Discharge Plan Triage Chief Complaint: Dizziness ED Provider: Alma Delia Barrett Dx/Rx/DC Orders Clinical Impression: Vertigo Instructions: ED Vertigo, Unspecified Prescriptions: New ondansetron 4 mg tablet,disintegrating 4 mg PO Q8H PRN (Reason: nausea and vomiting) Qty: 10 0RF Antivert 50 mg tablet 50 mg PO BID PRN (Reason: dizziness) Qty: 20 0RF No Action amitriptyline 10 mg tablet 10 tab PO QHS Label Comments: take 1 tablet by mouth at bedtime Primary Care Provider: Romeo De Jesus Referrals: Romeo De Jesus MD [Primary Care Provider] - 1 Week if not improving Disposition Disposition: Home, Self Care
[2021-10-18 22:54] VITALS: BP 114/72; PULSE 60; RESP 13
== END 2021-10-18 22:56 | disposition home or self-care (01) ==
PROVIDERS: Emergency Provider Emergency Medicine; PCP Family Medicine; Visit Provider Emergency Medicine
DX: R42 Dizziness and giddiness (principal)
CPT/HCPCS: 70496; 70498; 80048; 85025; 96361; 96374; 99285; J7030; Q9967; A4216; J2405

== ENCOUNTER → 2021-11-17 | Outpatient (CLI) | payer BC, SELFPAY ==
[2021-11-17 18:29] LABS: CRP < 2.90 mg/L (0.0-3.0)
[2021-11-19 15:08] LABS: Endomysial Antibody IgA Negative (Negative)
[2021-11-19 16:23] LABS: Immunoglobulin A 207 mg/dL (90-386); t-Transglutaminase IgA <2 U/mL (0-3)
== END | disposition home or self-care (01) ==
LOC: MTLAB 15:10
PROVIDERS: PCP Family Medicine; Referring Provider Internal Medicine Gastroenterology; Visit Provider Internal Medicine Gastroenterology
DX: R10.9 Unspecified abdominal pain (principal); R19.7 Diarrhea, unspecified
CPT/HCPCS: 36415; 82784; 83516; 86140; 86255

== ENCOUNTER → 2023-05-13 | Outpatient (CLI) | payer BC, SELFPAY ==
--- NOTE | 2023-05-13 08:25 | US_ITS ---
STUDY: SUPERFICIAL ULTRASOUND - LEFT LOWER QUADRANT/LEFT GROIN REASON FOR EXAM: Male, 27 years old. Left lower quadrant pain. TECHNIQUE: A superficial ultrasound was performed with real-time and static henriquez-scale imaging. COMPARISON: None. FINDINGS: The left lower quadrant/left groin was examined with ultrasound. There are 3 adjacent well-circumscribed benign-appearing lymph nodes. The largest measures 1.7 cm x 1.3 cm x 0.6 cm. US/Abdomen Limited IMPRESSION: Benign-appearing lymph nodes as described are seen in the left inguinal region. Electronically Signed: Homer Bartlett MD at 10:36 EST ,
--- OUTSIDE RECORDS SUMMARY | 2023-05-13 08:45 | XMS RPT_ITS | CCD ---
Author Name Unknown Address [address] [place] [address] Organization [facility] Care Team Providers Care Accounts Payable Assistant Name Role Phone LOWELL MALIK Unavailable Unavailable PHYSICIAN, NONE Unavailable Unavailable Results Test Name Value Interpretation Reference Range Facil ity Encounters Encounter Date Encounter Type Care Provider Facility Start: 06-23-2018 End: 06-27-2018 Patient encounter procedure [facility] Start: 01-27-2018 End: 01-27-2018 Emergency department patient visit LOWELL MALIK Facility:B Payers Date Payer Category Payer Self-pay 1995 Unknown [id number] Summary Purpose Family History No Family History Records FoundNo Family History Records Found Advance Directives No Advanced Directives Records FoundNo Advanced Directives Records Found Additional Source Comments (unrecognized sect ion and content) No Status Records FoundNo Status Records Found INFORMATION SOURCE (unrecogn ized section and content) DATE CREATED AUTHOR AUTHOR'S BEVERLY BENNETT 06/28/2018 [facility] FOR RECORDS PERTAINING TO PATIENTS WHO ARE OR HAVE BEEN ENROLLED IN A CHEMICAL DEPENDENCY/SUBSTANCEABUSE PROGRAM, SOME INFORMATION MAY BE OMITTED. This clinical summary was aggregated from multiple sources. Caution should be exercised in using it in the provision of clinical care. This summary normalizes information from multiple sources, and as a consequence, information in this document may materially change the coding, format and clinical context of patient data. In addition, data may be omitted in some cases. CLINICAL DECISIONS SHOULD BE BASED ON THE PRIMARY CLINICAL RECORDS. [employer] provides no warranty or guarantee of the accuracy or completeness of information in this document.
== END | disposition home or self-care (01) ==
PROVIDERS: PCP Family Medicine; Referring Provider Family Medicine; Visit Provider Family Medicine
DX: R10.32 Left lower quadrant pain (principal)
CPT/HCPCS: 76705

== ENCOUNTER 2024-09-17 23:14 | Emergency (ER) | payer BC, SELFPAY ==
[2024-09-17 23:15] VITALS: BP 146/81; PULSE 65; RESP 16; TEMP 36.6; O2SAT 97; BMI 24.4
--- NOTE | 2024-09-18 00:42 | EX.ED.DYSGE1 ---
HPI History of Present Illness Chief Complaint: Nosebleed Informant: patient Narrative Narrative: Patient is a 29-year-old male with past medical history of IBS and Winkler's esophagus. He states that a few hours prior to arrival he had sudden onset of bleeding out of his right nostril. He states he held pressure for 10 to 15 minutes without symptom improvement. He states that he called a friend who is a nurse and she put Afrin in his nose and packed it with some gauze. However after doing this there is still no resolution of the bleed. He states that he does not have a history of bleeding disorder nor does he take blood thinners. He states as he cannot get the bleeding under control at home he presents for evaluation [facility] Medical History (Updated 09/18/24 @ 02:[address] Diogenes Banks DO) Winkler esophagus Non-smoker prior herniated disc,back surgery. Home Medications ?Medication ?Instructions ?Recorded ?Last Taken ?Type NK 09/17/24 Unknown History Allergy/AdvReac Type Severity Reaction Status Date / Time strawberry ([place]) Allergy Hives Verified 03/01/23 13:17 Family History Other History of kidney cancer Surgical History Hx of surgical procedure h/o back surgery Social History Smoking Status: Never smoker ROS ROS ED Constitutional Constitutional ED: Denies chills or fever(s) Eyes Eyes: Denies change in vision ENT ENT ED: Reports other Details: Positive nosebleed Cardiovascular Cardiovascular: Denies chest pain Respiratory/Chest Respiratory/Chest: Denies cough or dyspnea Gastrointestinal Gastrointestinal: Denies abdominal pain, diarrhea, nausea or vomiting Musculoskeletal Musculoskeletal: Denies myalgias Integumentary Denies rash Neurologic Neurologic: Denies headache(s) Hematologic/Lymphatic Hematologic/Lymphatic: Denies easy bleeding or easy bruising EXAM Physical Exam Const Vital Signs: 09/17/24 23:15 09/18/24 00:46 Temperature 98 F 98 F Temperature Source Oral Pulse Rate 65 67 Respiratory Rate 16 18 Blood Pressure 146/81 H 141/100 H Blood Pressure Mean 102 113 Pulse Ox 97 97 Oxygen Delivery Method Room Air Positive well nourished and well developed General Appearance ED: well developed; Negative for pallor HEENT HEENT Narrative: There is blood clots and a scant amount of dark blood dripping from the right nostril consistent with patient's report of nosebleed. No overflow into the left nostril and no bleeding or clots noted in the posterior pharynx. Eyes PERRL and EOMs intact bilaterally General Eye ED: Negative for pale conjunctiva or scleral icterus Neck supple Resp normal respiratory effort and clear to auscultation bilaterally Cardio regular rate and regular rhythm Extremity normal to inspection Neuro oriented x3, CN's II-XII intact bilaterally and no sensory deficits noted Sensorium / Orientation: alert Motor Exam: strength 5/5 throughout Psych mental status grossly normal Skin no rashes or lesions noted and no wounds General Skin Exam: Negative for jaundice or pallor MDM MDM MDM Narrative Medical decision making narrative: Patient arrived to the ER hypertensive otherwise with stable vitals. He denied any trauma prior to the bleeding beginning and he does not have a history of bleeding disorder nor does he take blood thinners. Based on his young age and vitals and length of bleeding I have low concern for acute blood loss anemia. The type of bleeding is venous and not from the sphenopalatine artery so therefore there is no need for emergent ENT consultation. I discussed with patient that his bleeding is minimal and that this will most likely resolve with time as well as potential cauterization either chemically through Afrin and epinephrine or with silver nitrate. I did inform the patient that there is still potential that with that provided treatment that he could rebleed. He states he does not want to take the chance of his nose rebleeding and therefore a 5.5 cm rapid Rhino was placed in the right nostril. He was watched in the ER for approximately 20 to 30 minutes after placement of the rapid Rhino. The bleeding of the right nostril is now controlled and there is no overflow bleeding into the left nostril or in the posterior pharynx. Therefore there is no need for further intervention. Based on his young age and short time from a bleeding I have low concern for acute blood loss anemia and I have also low concern for thrombocytopenia or elevated bleeding times and therefore there is no need for laboratory studies. History & Record Review Discussion w/independent historian: Patient Discharge Plan Triage Chief Complaint: Nosebleed ED Provider: Diogenes Banks Dx/Rx/DC Orders Clinical Impression: Acute anterior epistaxis, IBS (irritable bowel syndrome) Instructions: ED Epistaxis (Adult) Prescriptions: No Action NK Primary Care Provider: Romeo De Jesus Referrals: Romeo De Jesus MD [Primary Care Provider] - Daniel Gordon MD [Med Staff - Active Staff] - Activity Restrictions/Additional Instructions: Please keep your nasal packing in for the next 24 to 48 hours. Follow-up with ENT for repeat evaluation. Return to the ER if you have any further concerns or worsening of symptoms. Print Language: [place] Citizen Disposition Disposition: Home, Self Care Discharge Date/Time: 09/18/24 00:47
[2024-09-18 00:46] VITALS: BP 141/100; PULSE 67; RESP 18; TEMP 36.6; O2SAT 97
== END 2024-09-18 00:47 | disposition home or self-care (01) ==
PROVIDERS: Emergency Provider Emergency Medicine; PCP Family Medicine; Visit Provider Emergency Medicine
DX: R04.0 Epistaxis (principal); K58.9 Irritable bowel syndrome, unspecified
CPT/HCPCS: 30901; 99282

== ENCOUNTER 2024-10-09 09:57 | Day surgery (SDC) | payer BC, SELFPAY ==
[2024-10-09] VITALS (8 sets, daily range): BP systolic 101–119; BP diastolic 64–73; PULSE 59–68; RESP 16; TEMP 36.4–36.8; O2SAT 93–98; BMI 24.0
[2024-10-09] MEDS: Lactated Ringers 1,000 ML 15 ML IV (10:19)
== END 2024-10-09 12:01 | disposition home or self-care (01) ==
LOC: EN 09:59 → AC 10:00
PROVIDERS: PCP Family Medicine; Referring Provider Family Medicine; Visit Provider Internal Medicine Gastroenterology
PROC: 0DJ08ZZ Inspection of Upper Intestinal Tract, Via Natural or Artificial Opening Endoscopic (ICD-10-PCS; CPT 43235; principal; 2024-10-09 10:55)
DX: K22.70 Barrett's esophagus without dysplasia (principal); R13.10 Dysphagia, unspecified; K31.89 Other diseases of stomach and duodenum
CPT/HCPCS: 43239; 88305; J2405